=== PATIENT | female | born 1985 | race Caucasian/White ===

== ENCOUNTER 2022-11-30 17:30 | Inpatient (IN) | payer SELFPAY, OTHER ==
[2022-11-30] VITALS (47 sets, daily range): BP systolic 87–155; BP diastolic 48–69; PULSE 63–89; TEMP 36.2–36.9; O2SAT 91–100; BMI 25.0
[2022-11-30] MEDS: Lactated Ringers 1,000 ML 999 ML IV (18:00)
--- NOTE | 2022-11-30 18:09 | HP.PCM.OB_ITS ---
HPI - General General Date of Admission: 11/30/22 Date of Service: 11/30/22 HPI Narrative CRISTEL PARIS, is a 37 F who presents in active labor, transfer from [facility] for maternal exhaustion, epidural and augmentation. Maternal Data Information Final SANTO: 11/26/22 Final SANTO Source: LMP Gestational age: [address] [facility] Medical History (Updated 11/30/22 @ 18:17 by Jeanine Hardy CNM) delivery delivered Home Medications ferrous sulfate 325 mg (65 mg iron) tablet (Iron (ferrous sulfate)) 325 mg PO DAILY anemia 11/30/22 [History Last Taken 11/30/22 05:00] vits,calcium no.78-iron fumarate-folic acid 29 mg-1 mg tablet (Prenatabs FA) 1 tab PO DAILY 11/30/22 [History Last Taken 11/30/22 05:00] Allergy/AdvReac Type Severity Reaction Status Date / Time No Known Allergies Allergy Verified 11/30/22 17:48 no significant family history Social History Smoking Status: Heavy Smoker (>10/day) History 10 Elective abortions Hx Para 8 Spontaneous abortions Hx # Term Pregnancies Ectopic pregnancies Hx # Pregnancies Multiple births # of living children NST FHR Rate Baby A Baseline: 140 Variability:: Moderate Accelerations:: 15 x 15 Decelerations:: None NST Reactive:: Yes FHR Category:: Category II Uterine Activity:: irregular Assessment Assessment Detail: Patient presents , plan expectant management for , pitocin/AROM PRN if needed]. Pain management: plans epidural. GBS negative. Management of any complications: TOLAC I have reviewed the [facility] and made any clinically relevant updates. ROS Constitutional Constitutional: Denies change in weight, fatigue, fever(s), headache(s), poor appetite or weakness Eyes Eyes: Denies blurry vision, change in vision, floaters, seeing flashes or spots in vision ENT HEENT: Denies dizziness, headache(s), loss taste/smell or sore throat Cardiovascular Cardiovascular: Reports systems reviewed and no addt'l complaints, except as documented; Denies chest pain, dizziness, dyspnea, irregular heart rhythm, lightheadedness, palpitations or rapid heart rate Respiratory/Chest Respiratory/Chest: Reports systems reviewed and no addt'l complaints, except as documented; Denies change in mental status, chest tightness, cough, dyspnea or breast pain Gastrointestinal Gastrointestinal: Reports systems reviewed and no addt'l complaints, except as documented; Denies anorexia, chewing difficulty, constipation, diarrhea or weight changes Genitourinary Genitourinary: Reports systems reviewed and no addt'l complaints, except as documented; Denies difficulty urinating, dysuria, flank pain, genital pain, urinary frequency or urinary urgency Musculoskeletal Musculoskeletal: Reports systems reviewed and no addt'l complaints, except as documented; Denies back pain, difficulty walking, extremity pain, joint pain, muscle cramps or muscle weakness Integumentary Integumentary: Reports systems reviewed and no addt'l complaints, except as documented; Denies lesions or unusual bruising Neurologic Neurologic: Reports systems reviewed and no addt'l complaints, except as documented; Denies abnormal movements, abnormal speech, dizziness, numbness, seizure-like activity, syncope or weakness Psychiatric Psychiatric: Reports systems reviewed and no addt'l complaints, except as documented; Denies behavioral changes, change in appetite, confusion, depression, homicidal ideation, suicidal ideation or suicidal thoughts Endocrine Endocrinology: Denies excessive sweating, polydipsia or polyuria Hematologic/Lymphatic Hematologic/Lymphatic: Denies anemia Allergic/Immunologic Allergic/Immunologic: Denies itchy eyes, lip swelling, throat swelling, tongue swelling or wheezing Vital Signs Vital Signs Vital Signs: Weight Weight: 137 lb 2.04 oz Body Mass Index (BMI) 25.0 Physical Exam Const alert, oriented x3 and no apparent distress General Appearance: cooperative Orientation / Consciousness: awake HEENT normocephalic Neck full ROM Lymph Lymphatic: no lymphadenopathy noted Chest inspection of chest normal Resp normal respiratory effort and normal air movement Effort and Inspection: able to speak in complete sentences and symmetric chest movement GI soft to palpation and non-tender Inspection: gravid Palpation: soft; Negative for tender external exam normal Manual OB Exam: estimated gestational size appropriate, presentation cephalic, dilated 7, effaced 90 and station 0 Back/Spine normal to inspection Extremity normal to inspection and full ROM Skin no rashes or lesions noted Psych mental status grossly normal Appearance: grossly normal Speech: normal speech Labs Labs Labs: No Data to Display Assessment & Plan (1) : PLAN: Patient presents IAL, plan expectant management for , pitocin/AROM PRN if needed. Pain management: plans epidural. GBS neg. Management of any complications: TOLAC I have reviewed the [facility] and made any clinically relevant updates. Case reviewed with SM, agrees with plan. Physician in house (2) Supervision of high risk , antepartum: (3) (vaginal after ): COMMENT: x7 (4) Maternal exhaustion complicating labor and delivery: (5) Desires (vaginal after ) trial:
[2022-11-30 18:17] LABS: Absolute Lymphocyte Count 1.28 X10^3/uL (0.83-4.51); Absolute Neutrophil Count 7.6 X10^3/uL (2.0-7.7); Basophil# 0.03 X10^3/uL; Basophil% 0.3 % (0-1); Eosinophil# 0.07 X10^3/uL; Eosinophils% 0.7 % (0-5); Hematocrit 34.9 % (37-47); Hemoglobin 11.8 g/dL (12.0-15.0); Lymphocyte # 1.28 X10^3/ul (0.83-4.51); Lymphocyte % 13.4 % (19-41); Mean Corp Hgb Conc 33.8 g/dL (32-36); Mean Corpuscular Hgb 34.3 pg (27.0-32.0); Mean Corpuscular Volume 101.5 fL (81-99); Mean Platelet Vol. 8.9 fl (6.2-12.0); Monocyte# 0.53 X10^3/uL; Monocyte% 5.6 % (0-10); NRBC Flagged by Analyzer 0 % (0-5); Neutrophil # 7.55 X10^3/uL (2.7-7.7); Neutrophil % 79.2 % (47-70); Platelet Count 213 K/mm3 (150-450); RBC Distribution Width CV 13.5 % (11.6-14.6); RBC Distribution Width SD 50.1 fl (35.1-43.9); Red Blood Count 3.44 M/mm3 (4.2-5.4); White Blood Count 9.5 K/mm3 (4.4-11.0)
[2022-11-30] MEDS: Lactated Ringers 1,000 ML 200 ML IV (19:22)
[2022-11-30] MEDS: fentaNYL-bupivacaine (epidural) 100 ML BAG EPIDURAL (19:23)
[2022-11-30] MEDS: Oxytocin 15 Units/NS 250ml 15 UNITS/250 ML IV.SOLN 2 UNITS IV (19:25)
[2022-11-30 20:38] LABS: Syphilis Antibodies Non-reactive
[2022-11-30 20:59] LABS: HIV - WCH Non-Reactive (Nonreactive); Hepatitis C Antibody Non-Reactive (Nonreactive)
--- NOTE | 2022-11-30 21:01 | OP.PCM_ITS ---
Assessment & Plan (1) (vaginal after ): COMMENT: x7 (2) Supervision of high risk , antepartum: (3) : (4) Maternal exhaustion complicating labor and delivery: (5) Desires (vaginal after ) trial: (6) Vaginal after : COMMENT: transfer [facility] Vaginal Delivery Operative Information Date of Procedure: 11/30/22 Pre-Operative Diagnosis: see a/p diagnoses Post-Operative Diagnosis: same Surgery / Procedure Performed: Type of Anesthesia: Epidural Special Medications: none Estimated Blood Loss: 200 Fluids Replaced: crystalloid Findings Description of Procedure: Patient began pushing and delivered the head in the cortez presentation. The head was delivered atraumatically and a itght nuchal cord x two was encoutered and mild shoulder dystocia lasting 66 sec, treated with anabel and suprapubic, reducing one nuchal cord and delivering through the other. the rest of the infant delivered and the was placed on the maternal abdomen. Delayed cord clamping was employed for approximately 60 seconds. Cord was clamped and cut and gentle traction was applied to the cord and the placenta delivered spontaneously immediately following it was noted to be intact with three-vessel cord. The perineum and vagina were inspected and noted to have a first degree perineal laceration which was repaired in the usual fashion with 3-0 vicryl rapide. . EBL was 200 cc. Patient and tolerated delivery well. Amniotic Fluid Description: Clear Placental Delivery Description: Spontaneous Placenta Disposition: [facility] Cord Vessel Description: 3 Vessels Cord Entanglement: None Delayed Cord Clamping: Yes Post Vaginal Delivery Medications Given After Delivery: IV Pitocin Episiotomy Description: None Complication Complications: None Procedures Urinary/Genital [id number]: [id number] delivery only
--- NOTE | 2022-11-30 21:05 | DCINST_ITS ---
Discharge Instructions Diet Discharge Diet: No restrictions Activity Discharge Activity: Return to Normal Activity, May Drive, May Shower and May Take a Tub Bath (in 4 weeks) May resume sexual activity in: 6-8 weeks (after seen by OB provider) Weight Bearing Status: Full weight bearing Lifting Restrictions: none Dressing / Incision Call your doctor if you observe: Fever of 101 or Higher, Inability to urinate, Using more than 1 pad per hour (for more than 2 hours in a row or more), Shortness of breath, Dizziness, Chest pain and - (headache not controlled with tylenol, change in vision) Follow Up Care When: in 6 weeks for visit, call the office to make the appointment. If you had elevated blood pressures call the office to be seen within 1 week. Test Results: Test results from this visit will be discussed in further detail at your follow- up appointment, if applicable. Discharge Plan Admission Admit Date/Time: 11/30/22 17:30 Attending Provider: Crystal Gaytan Discharge Orders/Prescriptions Prescriptions: No Action ferrous sulfate [Iron (ferrous sulfate)] 325 mg (65 mg iron) Tablet 325 mg PO DAILY Prenatabs FA 29-1 mg Tablet 1 tab PO DAILY Disposition Disposition (needs filled in before D/C Order can be placed): Home, Self Care
[2022-11-30] MEDS: Oxytocin 15 Units/NS 250ml 15 UNITS/250 ML IV.SOLN 83 UNITS IV (21:33)
[2022-12-01] VITALS (12 sets, daily range): BP systolic 93–114; BP diastolic 52–72; PULSE 67–84; RESP 15–18; TEMP 35.8–37.1; O2SAT 96–99
--- NOTE | 2022-12-01 08:45 | PN.OBGYN_ITS ---
Subjective Subjective Patient doing well without complaints. Tolerating PO. Ambulating and voiding without difficulty. Feeding well. Denies chest pain, shortness of breath, calf pain/swelling, fevers, chills, lightheadedness. Objective Data Objective Data Vital Signs: Vital Signs Temp Pulse Resp BP Pulse Ox O2 Del Method 97 F L 72 18 114/72 98 Room Air 12/01/22 04:16 12/01/22 08:40 12/01/22 04:16 12/01/22 08:40 12/01/22 04:15 12/01/22 04:16 Oxygen Delivery Method Room Air Weight: 137 lb 2.04 oz Body Mass Index (BMI) 25.0 Intake & Output: Intake and Output for Last 24 Hours 11/29/22 11/30/22 12/01/22 23:59 23:59 23:59 Intake Total 1276.09 / 1276.09 250 / 250 Output Total 200 / 200 500 / 500 Balance 1076.09 / 1076.09 -250 / -250 Lab / Micro Data Result Diagrams: 11/30/22 17:55 Labs: Laboratory Results - last 24 hr 11/30/22 17:55: WBC 9.5, RBC 3.44 L, Hgb 11.8 L, Hct 34.9 L, MCV 101.5 H, MCH 34.3 H, MCHC 33.8, RDW Std Deviation 50.1 H, RDW Coeff of Melany 13.5, Plt Count 213, MPV 8.9, Immature Gran % (Auto) 0.800, Neut % (Auto) 79.2 H, Lymph % (Auto) 13.4 L, [place] % (Auto) 5.6, Eos % (Auto) 0.7, Baso % (Auto) 0.3, Absolute Neuts (auto) 7.6, Absolute Lymphs (auto) 1.28, Nucleated RBC % 0 11/30/22 17:55: Blood Type A POSITIVE, Antibody Screen NEGATIVE 11/30/22 17:55: Syphilis Total Ab Non-reactive 11/30/22 17:55: Hepatitis C Antibody Non-Reactive, HIV 1&2 Antibody Non-Reactive Physical Exam Const alert and oriented x3 HEENT normocephalic Eyes PERRL Neck full ROM Resp normal respiratory effort GI soft to palpation GI Narrative: FF below U Assessment & Plan (1) Vaginal after : COMMENT: transfer [facility] [place] PLAN: Plan s/p PPD # 1 1. routine post delivery care 2. breast feeding- support given 3. rh positive 4. rubella immune
[2022-12-02 01:20] VITALS: BP 105/58; PULSE 73; RESP 16; TEMP 36.7
[2022-12-02 01:21] VITALS: BP 105/58; PULSE 73; TEMP 36.7
--- NOTE | 2022-12-02 07:41 | PN.OBGYN_ITS ---
Subjective Subjective Patient doing well without complaints. Tolerating PO. Ambulating and voiding without difficulty. Feeding well. Denies chest pain, shortness of breath, calf pain/swelling, fevers, chills, lightheadedness. Objective Data Objective Data Vital Signs: Vital Signs Temp Pulse Resp BP Pulse Ox O2 Del Method 98.1 F 73 16 105/58 L 98 Room Air 12/02/22 01:21 12/02/22 01:21 12/02/22 01:20 12/02/22 01:21 12/01/22 16:30 12/01/22 12:18 Oxygen Delivery Method Room Air Weight: 137 lb 2.04 oz Body Mass Index (BMI) 25.0 Intake & Output: Intake and Output for Last 24 Hours 11/30/22 12/01/22 12/02/22 23:59 23:59 23:59 Intake Total 1276.09 / 1276.09 250 / 250 Output Total 200 / 200 500 / 500 Balance 1076.09 / 1076.09 -250 / -250 Lab / Micro Data Result Diagrams: 11/30/22 17:55 Physical Exam Const alert and oriented x3 HEENT normocephalic Eyes PERRL Neck full ROM Resp normal respiratory effort GI soft to palpation GI Narrative: FF below U Assessment & Plan (1) Vaginal after : COMMENT: transfer [facility] PLAN: Plan s/p PPD # 2 1. routine post delivery care 2. breast feeding- support given 3. rh positive 4. rubella immune 5. 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
[2022-12-02 09:00] VITALS: BP 108/58; PULSE 86; RESP 20; TEMP 36.7
[2022-12-02 09:02] VITALS: TEMP 36.7
[2022-12-02 09:03] VITALS: BP 108/58; PULSE 86
== END 2022-12-02 11:00 | disposition home or self-care (01) | DRG 807 ==
PROVIDERS: Admitting Provider Obstetrics & Gynecology; Visit Provider Obstetrics & Gynecology
DX: O75.81 Maternal exhaustion complicating labor and delivery (principal); Z37.0 Single live birth; O26.23 Pregnancy care for patient with recurrent pregnancy loss, third trimester; F17.200 Nicotine dependence, unspecified, uncomplicated; O34.219 Maternal care for unspecified type scar from previous cesarean delivery; O69.81X0 Labor and delivery complicated by cord around neck, without compression, not applicable or unspecified; O70.0 First degree perineal laceration during delivery; O99.334 Smoking (tobacco) complicating childbirth; Z3A.40 40 weeks gestation of pregnancy
CPT/HCPCS: 59025; 59050; 85025; 86703; 86780; 86803; 86850; 86900; 86901; 99221; J7120; G0378

== ENCOUNTER → 2024-01-17 | Outpatient (CLI) | payer OTHER, SELFPAY ==
--- NOTE | 2024-01-17 13:00 | US_ITS ---
STUDY: FIRST TRIMESTER OBSTETRICAL ULTRASOUND REASON FOR EXAM: Female, 38 years old. . Bleeding. LMP: 10/23/2023 TECHNIQUE: Transabdominal and Transvaginal scanning was performed. PRIOR ULTRASOUND: None. FINDINGS: There is no demonstrated intrauterine gestational sac. There is no demonstrated yolk sac. There is no demonstrated embryo ( pole). The uterus measures 9.5 x 5.8 x 4.6 cm. The endometrium measures 5 mm.. There is no demonstrated uterine fibroid. The cervix is closed. The right ovary measures 1.8 x 1.8 x 0.4. There is normal blood flow demonstrated to the right ovary. There is a 1.4 x 1.3 cm cyst in the right ovary. There is no visualized right adnexal mass or complex lesion. The left ovary measures 3.9 x 3.4 x 2.4 cm. There is normal blood flow demonstrated to the left ovary. There is a 3.2 x 2.4 cm cyst in the left ovary which likely represents the corpus luteum. There is no visualized left adnexal mass or complex lesion. There is a small amount of fluid in the cul de sac. US/Init OB < 14Wks US IMPRESSION: No intrauterine gestation identified. No adnexal mass identified. These findings may be due to an early intrauterine gestation, a nonvisualized ectopic or a spontaneous . Follow-up sonography and beta hCG levels are recommended. Electronically Signed: Diego Sánchez MD at 14:59 EDT ,
[2024-01-17 15:07] LABS: hCG Titer Quant., Serum < 1 mIU/mL (1-3)
== END | disposition home or self-care (01) ==
LOC: US 12:58
PROVIDERS: PCP Family Medicine; Referring Provider Obstetrics & Gynecology; Visit Provider Obstetrics & Gynecology
DX: O46.90 Antepartum hemorrhage, unspecified, unspecified trimester (principal); Z3A.00 Weeks of gestation of pregnancy not specified
CPT/HCPCS: 36415; 76801; 84702